=== PATIENT | male | born 1960 | race African-American/Black ===

== ENCOUNTER 2021-02-24 16:19 | Inpatient (IN) ==
[2021-02-24] MEDS ORDERED: SODIUM CHLORIDE 0.9% 1,000 ML IV STA (17:05)
[2021-02-24 17:22] LABS: Basophils % 0.3 % (0.0-0.8); Eosinophils % 0.3 % (0.00-10.9); Hematocrit 25.4 VOL% (42.0-52.0); Hemoglobin 7.9 GM/DL (14.0-18.0); Immature Granulocytes % 0.3 %; Immature Granulocytes Absolute 0.01 #; Lymphocytes # 0.6 10*3/uL (1.4-4.0); Lymphocytes % 14.9 % (21.2-54.2); Mean Corpuscular HGB Conc 31.1 GM/DL (32-36); Mean Corpuscular Volume 86.7 FL (87-102); Mean Platelet Volume 11.1 FL (9.6-12.0); Monocytes % 13.3 % (1.7-12.7); Neutrophils % 70.9 % (38.7-73.9); Platelet Count 179 T/CUMM (130-400); Red Blood Count 2.93 MC/CUMM (3.8-5.5); Red Cell Distribution Width 15.7 % (9.3-17.3); White Blood Count 3.8 T/CUMM (4-12)
[2021-02-24 17:34] LABS: Bilirubin,Total 0.6 MG/DL (0.20-1.00); Calcium 7.2 MG/DL (8.5-10.1); Osmolality,Calculated 304.3 MOS/KG (273-304); Potassium 4.8 MMOL/L (3.5-5.1); Total Protein 5.3 G/DL (6.4-8.2)
[2021-02-24 17:46] LABS: Anisocytosis Slight; Band Neutrophils 28 % (0-10); Lymphocytes 16 % (20-55); Platelet Estimate Normal; Segmented Neutrophils 46 % (50-85); Total Cells Counted 100
[2021-02-24] MEDS ORDERED: SODIUM CHLORIDE 0.9% 500 ML IV STA (20:17)
[2021-02-24] MEDS ORDERED: VANCOMYCIN 1,000 MG VIAL INTRAPERIT ONE (21:00)
[2021-02-24] MEDS ORDERED: ACETAMINOPHEN 325 MG TABLET PO PRN (22:38)
[2021-02-24] MEDS ORDERED: NOREPINEPHRINE 8 MG in SODIUM CHLORIDE 0.9% 242 ML IV PRN (22:38)
[2021-02-24] MEDS ORDERED: ZALEPLON 5 MG CAPSULE PO PRN (22:38)
[2021-02-24] MEDS ORDERED: guaiFENesin/DM ER 600-30 MG TABLET PO PRN (22:38)
[2021-02-24] MEDS ORDERED: NICOTINE 21 MG/24 HR PATCH TRANSDERM PRN (22:38)
[2021-02-24] MEDS ORDERED: ONDANSETRON 4 MG/2 ML VIAL IV PRN (22:38)
[2021-02-24] MEDS ORDERED: diphenhydrAMINE CAP 25 MG CAPSULE PO PRN (22:38)
[2021-02-24] MEDS ORDERED: GLUCAGON 1 MG VIAL IM PRN (22:38)
[2021-02-24] MEDS ORDERED: DEXTROSE 50% 25 GM/50 ML VIAL IV PRN (22:38)
[2021-02-24] MEDS ORDERED: NOREPINEPHRINE 4 MG/4 ML VIAL IV ONE (22:42)
[2021-02-25] MEDS ORDERED: NOREPINEPHRINE 4 MG/4 ML VIAL IV ONE (00:19)
[2021-02-25] MEDS: SODIUM CHLORIDE 0.9% 1,000 ML IV SCH ×2 (01:43→20:42)
[2021-02-25 04:47] LABS: Basophils % 0.4 % (0.0-0.8); Eosinophils # 0.1 10*3/uL (0.0-0.87); Eosinophils % 2.3 % (0.00-10.9); Hematocrit 28.1 VOL% (42.0-52.0); Hemoglobin 8.9 GM/DL (14.0-18.0); Immature Granulocytes % 0.4 %; Immature Granulocytes Absolute 0.01 #; Lymphocytes # 0.5 10*3/uL (1.4-4.0); Lymphocytes % 17.4 % (21.2-54.2); Mean Corpuscular HGB Conc 31.7 GM/DL (32-36); Mean Platelet Volume 10.5 FL (9.6-12.0); Monocytes % 15.5 % (1.7-12.7); Platelet Count 190 T/CUMM (130-400); Red Blood Count 3.23 MC/CUMM (3.8-5.5); Red Cell Distribution Width 15.9 % (9.3-17.3); White Blood Count 2.6 T/CUMM (4-12)
[2021-02-25 05:18] LABS: Albumin 2.4 G/DL (3.4-5.0); Bilirubin,Total 0.6 MG/DL (0.20-1.00); Calcium 7.4 MG/DL (8.5-10.1); Osmolality,Calculated 304.4 MOS/KG (273-304); Potassium 4.9 MMOL/L (3.5-5.1); Total Protein 6.1 G/DL (6.4-8.2)
[2021-02-25 05:21] LABS: Band Neutrophils 1 % (0-10); Hypochromasia 1+; Lymphocytes 26 % (20-55); Microcytosis 1+; Ovalocytes Slight; Platelet Estimate Adequate; Segmented Neutrophils 59 % (50-85); Total Cells Counted 100
[2021-02-25] MEDS: HYDROCORTISONE 100 MG VIAL IV SCH ×2 (09:40→22:50)
[2021-02-25] MEDS: PANTOPRAZOLE 40 MG TABLET PO SCH (09:40)
[2021-02-25 12:24] LABS: Calcium 7.7 MG/DL (8.5-10.1); Osmolality,Calculated 288.5 MOS/KG (273-304); Potassium 4.8 MMOL/L (3.5-5.1)
[2021-02-25 12:32] LABS: High Sensitive Troponin I* 2818.9 ng/L (0-78)
[2021-02-26 06:17] LABS: Hematocrit 28.5 VOL% (42.0-52.0); Hemoglobin 8.9 GM/DL (14.0-18.0); Immature Granulocytes % 0.4 %; Immature Granulocytes Absolute 0.02 #; Lymphocytes # 0.3 10*3/uL (1.4-4.0); Lymphocytes % 5.7 % (21.2-54.2); Mean Corpuscular HGB Conc 31.2 GM/DL (32-36); Mean Corpuscular Volume 86.4 FL (87-102); Mean Platelet Volume 11.4 FL (9.6-12.0); Monocytes % 6.1 % (1.7-12.7); Neutrophils % 87.8 % (38.7-73.9); Platelet Count 220 T/CUMM (130-400); Red Cell Distribution Width 15.7 % (9.3-17.3); White Blood Count 4.7 T/CUMM (4-12)
[2021-02-26] MEDS ORDERED: HEPARIN 5,000 UNIT/1 ML VIAL INTRAPERIT ONE (06:30)
[2021-02-26 06:37] LABS: Alanine Aminotransferase 23 U/L (16-61); Albumin 2.2 G/DL (3.4-5.0); Alkaline Phosphatase 74 U/L (45-117); Aspartate Amino Transferase 27 U/L (0-37); Bilirubin,Total < 0.39 MG/DL (0.20-1.00); Blood Urea Nitrogen 82 MG/DL (7-18); Calcium 7.6 MG/DL (8.5-10.1); Carbon Dioxide 24 MMOL/L (21-32); Estimated Glom Filtration Rate 9 ML/MIN; Glucose 140 MG/DL (74-106); Potassium 4.8 MMOL/L (3.5-5.1); Sodium 136 MMOL/L (136-145)
[2021-02-26 07:12] LABS: Band Neutrophils 3 % (0-10); Lymphocytes 3 % (20-55); Nucleated Red Blood Cells 1 (0-5); Segmented Neutrophils 89 % (50-85); Total Cells Counted 100
[2021-02-26 07:13] LABS: Hypochromasia 1+; Microcytosis 1+; Ovalocytes Slight; Target Cells Slight
[2021-02-26 07:14] LABS: Acanthocytes Few; Platelet Estimate Normal
[2021-02-26] MEDS: HYDROCORTISONE 100 MG VIAL IV SCH ×2 (08:53→21:41)
[2021-02-26] MEDS: PANTOPRAZOLE 40 MG TABLET PO SCH (08:53)
[2021-02-26] MEDS: SODIUM CHLORIDE 0.9% 1,000 ML IV SCH (16:36)
[2021-02-26] MEDS: carvediloL 6.25 MG TABLET PO SCH (21:41)
[2021-02-27 05:41] LABS: Hematocrit 25.8 VOL% (42.0-52.0); Hemoglobin 8.4 GM/DL (14.0-18.0); Immature Granulocytes % 0.5 %; Immature Granulocytes Absolute 0.03 #; Lymphocytes # 0.4 10*3/uL (1.4-4.0); Lymphocytes % 6.2 % (21.2-54.2); Mean Corpuscular HGB Conc 32.6 GM/DL (32-36); Mean Corpuscular Volume 81.9 FL (87-102); Mean Platelet Volume 11.5 FL (9.6-12.0); Monocytes % 5.5 % (1.7-12.7); Neutrophils % 87.8 % (38.7-73.9); Platelet Count 224 T/CUMM (130-400); Red Blood Count 3.15 MC/CUMM (3.8-5.5); Red Cell Distribution Width 14.9 % (9.3-17.3); White Blood Count 6.5 T/CUMM (4-12)
[2021-02-27 05:53] LABS: Calcium 7.1 MG/DL (8.5-10.1); Osmolality,Calculated 288.5 MOS/KG (273-304); Potassium 4.2 MMOL/L (3.5-5.1)
[2021-02-27 06:31] LABS: Hypochromasia Slight; Lymphocytes 4 % (20-55); Microcytosis Slight; Platelet Estimate Normal; Segmented Neutrophils 93 % (50-85); Total Cells Counted 100
[2021-02-27] MEDS: PANTOPRAZOLE 40 MG TABLET PO SCH (08:59)
[2021-02-27] MEDS: carvediloL 6.25 MG TABLET PO SCH (08:59)
[2021-02-27] MEDS: HYDROCORTISONE 100 MG VIAL IV SCH (08:59)
[2021-02-27] MEDS ORDERED: VANCOMYCIN INJ 2,250 MG in SODIUM CHLORIDE 0.9% 500 ML IV ONE (13:00)
[2021-02-27] MEDS: FLUCONAZOLE 100 MG TABLET PO SCH (13:58)
[2021-02-27] MEDS: SODIUM CHLORIDE 0.9% 1,000 ML IV SCH (14:06)
[2021-02-27] MEDS ORDERED: hydrALAZINE 20 MG/1 ML VIAL IV ONE (17:06)
[2021-02-27] MEDS ORDERED: hydrALAZINE 20 MG/1 ML VIAL IV PRN (17:08)
[2021-02-27] MEDS ORDERED: DOXAZOSIN 1 MG TABLET PO SCH (21:00)
[2021-02-27] MEDS: carvediloL 25 MG TABLET PO SCH (23:32)
[2021-02-28 04:56] LABS: Basophils % 0.1 % (0.0-0.8); Eosinophils % 0.4 % (0.00-10.9); Hematocrit 26.9 VOL% (42.0-52.0); Hemoglobin 8.8 GM/DL (14.0-18.0); Immature Granulocytes % 0.9 %; Immature Granulocytes Absolute 0.08 #; Lymphocytes # 1.1 10*3/uL (1.4-4.0); Lymphocytes % 13.1 % (21.2-54.2); Mean Corpuscular HGB Conc 32.7 GM/DL (32-36); Mean Corpuscular Volume 81.3 FL (87-102); Mean Platelet Volume 11.6 FL (9.6-12.0); Monocytes % 12.7 % (1.7-12.7); Neutrophils % 72.8 % (38.7-73.9); Platelet Count 221 T/CUMM (130-400); Red Blood Count 3.31 MC/CUMM (3.8-5.5); Red Cell Distribution Width 14.6 % (9.3-17.3); White Blood Count 8.6 T/CUMM (4-12)
[2021-02-28 05:24] LABS: Osmolality,Calculated 298.7 MOS/KG (273-304); Potassium 3.6 MMOL/L (3.5-5.1)
[2021-02-28 06:33] LABS: Eosinophils 1 % (0-10); Lymphocytes 8 % (20-55); Segmented Neutrophils 81 % (50-85); Total Cells Counted 100
[2021-02-28 06:34] LABS: Acanthocytes Few; Hypochromasia 1+; Microcytosis 1+; Ovalocytes Slight; Target Cells Slight
[2021-02-28 06:35] LABS: Platelet Estimate Normal
[2021-02-28] MEDS ORDERED: DOXAZOSIN 1 MG TABLET PO SCH (09:00)
[2021-02-28] MEDS: PANTOPRAZOLE 40 MG TABLET PO SCH (09:10)
[2021-02-28] MEDS: FLUCONAZOLE 100 MG TABLET PO SCH (09:10)
[2021-02-28] MEDS: carvediloL 25 MG TABLET PO SCH ×2 (09:10→21:04)
[2021-02-28] MEDS ORDERED: FUROSEMIDE 40 MG/4 ML VIAL IV ONE (10:20)
[2021-02-28] MEDS ORDERED: CHOLESTYRAMINE 4 GM PACK PO ONE (11:00)
[2021-02-28] MEDS: FUROSEMIDE 40 MG/4 ML VIAL IV SCH (17:20)
[2021-02-28] MEDS: CHOLESTYRAMINE 4 GM PACK PO SCH (21:29)
[2021-03-01] MEDS ORDERED: CEFTAZIDIME IV ONE (04:00)
[2021-03-01] MEDS ORDERED: SODIUM CHLORIDE 0.9% IV ONE (04:00)
[2021-03-01 05:40] LABS: Basophils % 0.2 % (0.0-0.8); Eosinophils # 0.2 10*3/uL (0.0-0.87); Eosinophils % 2.8 % (0.00-10.9); Hematocrit 27.6 VOL% (42.0-52.0); Hemoglobin 9.3 GM/DL (14.0-18.0); Immature Granulocytes % 1.2 %; Immature Granulocytes Absolute 0.07 #; Lymphocytes # 0.8 10*3/uL (1.4-4.0); Lymphocytes % 13.8 % (21.2-54.2); Mean Corpuscular HGB Conc 33.7 GM/DL (32-36); Mean Corpuscular Volume 81.2 FL (87-102); Mean Platelet Volume 10.6 FL (9.6-12.0); Monocytes % 13.3 % (1.7-12.7); Neutrophils % 68.7 % (38.7-73.9); Platelet Count 208 T/CUMM (130-400); Red Cell Distribution Width 14.6 % (9.3-17.3); White Blood Count 5.8 T/CUMM (4-12)
[2021-03-01 06:02] LABS: Calcium 7.2 MG/DL (8.5-10.1); Osmolality,Calculated 297.7 MOS/KG (273-304); Potassium 3.4 MMOL/L (3.5-5.1)
[2021-03-01] MEDS: PANTOPRAZOLE 40 MG TABLET PO SCH (10:10)
[2021-03-01] MEDS: CHOLESTYRAMINE 4 GM PACK PO SCH (10:10)
[2021-03-01] MEDS: FLUCONAZOLE 100 MG TABLET PO SCH (10:10)
[2021-03-01] MEDS: carvediloL 25 MG TABLET PO SCH (10:10)
[2021-03-01] MEDS: FUROSEMIDE 40 MG/4 ML VIAL IV SCH ×2 (10:11→17:30)
[2021-03-01] MEDS ORDERED: CHOLESTYRAMINE 4 GM PACK PO PRN (15:40)
[2021-03-01 18:45] VITALS: BP 138/80
[2021-03-02] MEDS ORDERED: FUROSEMIDE 20 MG TABLET PO SCH (09:00)
== END 2021-03-01 17:33 | disposition home or self-care (01) | DRG 919 ==
LOC: N.ED 16:19 → SUATTDRO 22:38 → N.EDINP 22:38 → N.5E 02-25 21:25
PROVIDERS: ADMIT Internal Medicine; ATTEND Hospitalist